=== PATIENT | male | born 1985 | race Caucasian/White ===

== ENCOUNTER → 2020-07-23 11:03 | Outpatient (BNVA) | payer OTHER, SELFPAY | PROVIDERS: PCP Nurse Practitioner Family; Visit Provider Nurse Practitioner Family | DX: R63.4 Abnormal weight loss (principal); E55.9 Vitamin D deficiency, unspecified; I10 Essential (primary) hypertension; Z13.6 Encounter for screening for cardiovascular disorders; Z79.899 Other long term (current) drug therapy | CPT/HCPCS: 80053; 80061; 81003; 82043; 82306; 83036; 84439; 84443; 85025; 85651; 86140 ==

== ENCOUNTER 2020-09-13 08:56 | Day surgery (SDC) | payer OTHER, SELFPAY ==
--- NOTE | 2020-09-13 09:04 | ANES.PREANE2 ---
Pre-Anesthetic Assessment Pre-Anesthetic Assessment: Height/Weight: Height 1.91 m Weight 93.44 kg Preop Diagnosis: blood in stool Proposed Procedure: Operation Date: 09/13/20 10:30 Proposed Procedures p Colonoscopy 98368 K92.1(Not Applicable) - Vamsi Asher MD Familial anesthetic complications: none Last intake: . 8 hrs Social: Social History: No alcohol and No tobacco Exam: Pre-Anes Outpt Exam: alert, oriented x 3, clear to auscultation bilaterally and regular rate & rhythm Airway: Cervical ROM: WNL MP: 3 Dentition: Full GI: Comments: blood in stool Anesthetic Plan: ASA status: 2 Anesthesia: MAC Risk of > 500 ml blood loss (7ml/kg in children): No PFSH Anesthesia PFSH: Medical History Blood in stool CKD (chronic kidney disease) Hypertension screen Medication management Sleep apnea Unintentional weight loss Vitamin D deficiency Social History (Updated 08/11/20 @ 13:43 by STAR Lilly) Smoking and tobacco status: former smoker History of recent travel: Yes Data Anesthesia Cardiac Studies: No Data to Display
--- NOTE | 2020-09-13 09:45 | W.PM.OPSFHP ---
Same Day Surgery H&P Indication for Procedure/HPI DATE OF PROCEDURE: September 13, 2020 CHIEF COMPLAINT/INDICATIONFOR SURGICAL PROCEDURE: Hematochezia PREOP DIAGNOSIS: blood in stool PLANNED PROCEDRUE: Operation Date: 09/13/20 10:30 Proposed Procedures p Colonoscopy 48047 K92.1(Not Applicable) - Vamsi Asher MD Medications/Allergies* Home Medications Medication Instructions Recorded Confirmed Type No Known Home Medications 08/11/20 09/09/20 History Allergies/Adverse Reactions Allergy/AdvReac Type Severity Reaction Status Date / Time Penicillins Allergy ALGY-Rash Verified 09/09/20 08:35 Pertinent History/Comorbid Conditions* Medical History (Updated 07/28/20 @ 16:41 by BARB Marie) Blood in stool CKD (chronic kidney disease) Hypertension screen Medication management Sleep apnea Unintentional weight loss Vitamin D deficiency Social History Smoking and tobacco status: former smoker History of recent travel: Yes Pertinent Exam Findings alert, oriented x 3, clear to auscultation bilaterally, regular rate & rhythm, operative site marked and procedure specific exam findings Recommendations Surgery/Procedure today Coding Level of Care Code Acute Armament Repairer for Hieu Cunningham
[2020-09-13 10:12] VITALS: BP 105/70; PULSE 61; RESP 16; TEMP 36.5; O2SAT 99
[2020-09-13] MEDS: sodium chloride 0.9% 1,000 ML 30 ML IV (10:17)
[2020-09-13 11:28] VITALS: BP 114/74; PULSE 67; RESP 18; TEMP 36.4; O2SAT 97
[2020-09-13 11:41] VITALS: BP 117/74; PULSE 61; RESP 18; O2SAT 100
--- NOTE | 2020-09-13 19:27 | ANE.PACU2 ---
Inpatient post-anesthesia follow up: Airway intact: Yes Vital signs: Temperature 97.5 F Pulse Rate 61 Respiratory Rate 18 Blood Pressure 117/74 Pulse Oximetry 100 Oxygen Delivery Me thod Room Air Oxygen Flow Rate Fraction of Inspir ed Oxygen Hydration adequate: Yes Nausea and vomiting: No Pain level: 1 Mental status: Baseline
--- NOTE | 2020-09-13 19:27 | ANE.PACU2 ---
Inpatient post-anesthesia follow up: Airway intact: Yes Vital signs: Temperature 97.5 F Pulse Rate 61 Respiratory Rate 18 Blood Pressure 117/74 Pulse Oximetry 100 Oxygen Delivery Me thod Room Air Oxygen Flow Rate Fraction of Inspir ed Oxygen Hydration adequate: Yes Nausea and vomiting: No Pain level: 2 Mental status: Baseline
== END 2020-09-13 12:00 | disposition home or self-care (01) ==
PROVIDERS: PCP Nurse Practitioner Family; Visit Provider Internal Medicine
PROC: 0DJD8ZZ Inspection of Lower Intestinal Tract, Via Natural or Artificial Opening Endoscopic (ICD-10-PCS; CPT 45378; principal; 2020-09-13 10:30)
DX: K92.1 Melena (principal); N18.9 Chronic kidney disease, unspecified; G47.30 Sleep apnea, unspecified; E55.9 Vitamin D deficiency, unspecified; Z87.891 Personal history of nicotine dependence
CPT/HCPCS: 45378; 96360; J2704; J7030

== ENCOUNTER → 2023-01-11 08:52 | Outpatient (BNVA) | payer OTHER, SELFPAY | PROVIDERS: PCP Nurse Practitioner Family; Visit Provider Nurse Practitioner Family | DX: E55.9 Vitamin D deficiency, unspecified (principal); Z13.6 Encounter for screening for cardiovascular disorders; Z79.899 Other long term (current) drug therapy; D64.9 Anemia, unspecified; K92.1 Melena; L98.9 Disorder of the skin and subcutaneous tissue, unspecified; R53.83 Other fatigue; L81.9 Disorder of pigmentation, unspecified; Z00.00 Encounter for general adult medical examination without abnormal findings; R53.82 Chronic fatigue, unspecified; K12.0 Recurrent oral aphthae | CPT/HCPCS: 80053; 80061; 81003; 82306; 82607; 82728; 82746; 83036; 83550; 84402; 84403; 84443; 85025; 85651; 86140 ==

== ENCOUNTER 2023-02-26 07:54 | Outpatient (CLI) | payer OTHER, SELFPAY ==
[2023-02-26 08:38] LABS: Testosterone Total 305.8 ng/dL (249-836)
== END 2023-02-26 07:55 | disposition home or self-care (01) ==
LOC: LAB 07:56
PROVIDERS: PCP Nurse Practitioner Family; Visit Provider Nurse Practitioner Family
DX: R53.83 Other fatigue (principal)
CPT/HCPCS: 36415; 84403

== ENCOUNTER → 2023-10-18 09:57 | Outpatient (BNVA) | payer OTHER, SELFPAY | PROVIDERS: PCP Nurse Practitioner Family; Visit Provider Nurse Practitioner Family | DX: J22 Unspecified acute lower respiratory infection (principal); R06.02 Shortness of breath; Z13.6 Encounter for screening for cardiovascular disorders; E55.9 Vitamin D deficiency, unspecified; R53.82 Chronic fatigue, unspecified; Z79.899 Other long term (current) drug therapy; D64.9 Anemia, unspecified | CPT/HCPCS: 71046; 80053; 80061; 81003; 82306; 82607; 82728; 83036; 83540; 84443; 85025; 85651; 86140 ==

== ENCOUNTER → 2023-12-31 15:12 | Outpatient (BNVA) | payer OTHER, SELFPAY | PROVIDERS: PCP Nurse Practitioner Family; Visit Provider Nurse Practitioner Family | DX: J22 Unspecified acute lower respiratory infection (principal); R06.02 Shortness of breath; R50.9 Fever, unspecified | CPT/HCPCS: 71046; 87071; 87400; 87880 ==

== ENCOUNTER 2024-01-16 15:36 | Outpatient (CLI) | payer OTHER, SELFPAY ==
--- NOTE | 2024-01-16 15:30 | CT_ITS ---
WS: [id number] CT chest w con* [id number] HISTORY: R06.02 - Shortness of breath TECHNIQUE: Axial imaging performed through the thorax. Coronal and sagittal reformats are submitted. All CT scans at [facility] use at least one of these dose optimization techniques: automated exposure control; mA and/or kV adjustment per patient size (includes targeted exams where dose is mat ched to clinical indication); or iterative reconstruction. CONTRAST: Omnipaque 350; 100 mL IV. DLP: 505.16 mGy.cm COMPARISON: 12/31/2023, 10/18/2023 Lungs and central airway: Mild bilateral and diffuse interstitial prominence. No focal consolidation or mass. No tree-in-bud airspace disease. No bronchiectasis. Pleura: Normal. No pleural effusion. Heart and pericardium: Mild cardiomegaly. No RIGHT heart strain. Mediastinum and javy: No mediastinum or hilar adenopathy. Vessels: Normal size aortic and pulmonary artery. No coronary artery calcifications. Chest wall and lower neck: No soft tissue masses. Upper abdomen: Normal. Osseous structures: No destructive process. CT/CT chest w con* [id number] IMPRESSION: 1. No pulmonary mass or pneumonia. 2. Very minimal diffuse interstitial prominence. This can be seen with mild pn eumonitis or respiratory bronchiolitis. There is no pneumonia. 3. Mild cardiomegaly. 4. No mediastinal or hilar adenopathy.
[2024-01-16] MEDS: iohexol 350 mg/mL 500 mL Btl (per mL) IV (15:47)
== END 2024-01-16 15:37 | disposition home or self-care (01) ==
LOC: RAD 15:37
PROVIDERS: PCP Nurse Practitioner Family; Visit Provider Nurse Practitioner Family
DX: R06.02 Shortness of breath (principal); R05.3 Chronic cough
CPT/HCPCS: 71260

== ENCOUNTER 2024-01-23 11:57 | Outpatient (CLI) | payer OTHER, SELFPAY ==
--- NOTE | 2024-01-23 12:00 | USCV_ITS ---
Steven Callejas Age: 38 Gender: M : 1985 Exam Date: 01/23/2024 12:21 Ordering Phys: KRISTIN Nieves APRN Technologist: CT Exam Location: [facility] [place] Indication: BP: 120 / 70 HR: 59 Rhythm: Sinus Technical Quality: Adequate MEASUREMENTS (Male / Female) Normal Values 2D ECHO LVOT Diameter 1.3 cm LV Ejection Fraction MOD 4C 55.3 % LV Ejection Fraction MOD 2C 62.8 % LV Ejection Fraction 2C AL 63.6 % RA Systolic Volume 4C AL 88.7 ml RA Systolic Volume 4C MOD 86.6 ml LA Sys Volume AL 67.4 cm cubed LA Sys Volume Index AL 28.3 cm cubed/m squared IVC Diameter 2.3 cm M-MODE LA Ao Ratio MM 1.5 AV Cusp Separation MM 2.3 cm DOPPLER AV Peak Velocity 125.0 cm/s LVOT Peak Velocity 97.0 cm/s AV Area Cont Eq vti 1.2 cm squared AV Area Cont Eq pk 1.0 cm squared MV Peak Velocity 66.0 cm/s MV Area PHT 2.5 cm squared Mitral E to A Ratio 1.3 TR Peak Velocity 191.0 cm/s TR Peak Gradient 14.6 mmHg TR Mean Velocity 127.0 cm/s TR Mean Gradient 7.7 mmHg TR Velocity Time Integral 44.9 cm TV Peak E Velocity 66.0 cm/s PV Peak Velocity 99.5 cm/s FINDINGS Left Ventricle Left ventricle is normal in size. LV systolic function is normal with EF of 55 to 60%. No regional wall motion abnormalities are seen. Right Ventricle Normal in size and function Right Atrium Normal in size Left Atrium Normal in size Mitral Valve Structurally normal mitral valve. Mild mitral regurgitation Aortic Valve Structurally normal aortic valve. No significant stenosis or regurgitation. Tricuspid Valve Mild tricuspid regurgitation. Pulmonary artery systolic pressure is normal. Pulmonic Valve Mild pulmonic regurgitation. Pericardium Normal. Aorta Normal in size IVC Not well visualized. CONCLUSIONS LV systolic function is normal with EF of 55 to 60%. Mild mitral regurgitation. Mild tricuspid regurgitation. Mild pulmonic regurgitation. No comparison studies are available Kai Rubio MD (Electronically Signed) Final Date: 23 January 2024 18:02 S
== END 2024-01-23 11:58 | disposition home or self-care (01) ==
LOC: RAD 11:57
PROVIDERS: PCP Nurse Practitioner Family; Visit Provider Nurse Practitioner Family
DX: R06.02 Shortness of breath (principal)
CPT/HCPCS: 93306

== ENCOUNTER 2024-02-19 08:04 | Outpatient (CLI) | payer OTHER, SELFPAY | END 2024-02-19 08:05 | disposition home or self-care (01) | LOC: RT 08:05 | PROVIDERS: PCP Nurse Practitioner Family; Visit Provider Nurse Practitioner Family | DX: R05.3 Chronic cough (principal); R06.09 Other forms of dyspnea | CPT/HCPCS: 94010 ==

== ENCOUNTER → 2025-01-05 14:13 | Outpatient (BNVA) | payer OTHER, SELFPAY | PROVIDERS: PCP Nurse Practitioner Family; Visit Provider Nurse Practitioner Family | DX: R69 Illness, unspecified (principal) | CPT/HCPCS: 87400; 87426 ==